=== PATIENT | female | born 1990 | race Caucasian/White ===

== ENCOUNTER 2019-04-02 09:52 | Emergency (ER) | payer OTHER ==
[~2019-04-02] VITALS: Ht 170.2 cm; Wt 76.0 kg
--- NOTE | 2019-04-02 10:07 | NUR ---
EKG IN TRIAGE.
--- NOTE | 2019-04-02 10:33 | NUR ---
PT REPORTS "MY ARMS AND CHEST ARE HEAVY AND MY THROAT IS ON FIRE. MY EARS ALSO HURT". ROUNDED. PT ON SERIAL VS AND HEART MONITOR. NAD.
--- NOTE | 2019-04-02 10:35 | NUR ---
I reported to Elias that pt systolic was over 210.
[2019-04-02] MEDS ORDERED: LABETALOL 5MG/ML, 20ML ONE (10:44)
[2019-04-02 10:47] LABS: BASOPHILS # (AUTO) 0.03 x10^3/uL (0-0.1); BASOPHILS % (AUTO) 0 % (0-1); EOSINOPHILS # (AUTO) 0.09 x10^3/uL (0-0.4); EOSINOPHILS % (AUTO) 1 % (1-7); LYMPHOCYTES % (AUTO) 21 % (22-44); MD NO; MEAN CORPUSCULAR HEMOGLOBIN 31.4 pg (27.0-34.8); MEAN CORPUSCULAR HGB CONC 33.7 g/dL (32.4-35.8); MEAN CORPUSCULAR VOLUME 93.1 fL (80-100); MEAN PLATELET VOLUME 8.4 fL (7.4-10.4); MONOCYTES % (AUTO) 6 % (2-9); NEUTROPHILS # (AUTO) 7.52 x10^3/uL (1.8-6.8); NEUTROPHILS % (AUTO) 72 % (42-75); PLATELET COUNT 326 x10^3/uL (130-400); RED BLOOD COUNT 4.65 x10^6/uL (3.82-5.3); RED CELL DISTRIBUTION WIDTH 12.5 % (9.6-15.2)
[2019-04-02 10:56] LABS: ALANINE AMINOTRANSFERASE 18 U/L (12-78); ANION GAP 10 mmol/L (5-15); CHLORIDE 109 mmol/L (98-107); CREATININE 0.88 mg/dL (0.55-1.02)
--- NOTE | 2019-04-02 10:57 | NUR ---
PT MEDICATED FOR HIGH BP. ROUNDED AGAIN. EKG IN PROGRESS. NAD.
[2019-04-02] MEDS ORDERED: LABETALOL 5MG/ML, 20ML IVPush ONE (11:00)
[2019-04-02 11:01] LABS: ALKALINE PHOSPHATASE 77 U/L (45-117); BILIRUBIN,TOTAL 0.3 mg/dL (0.2-1.0); TOTAL PROTEIN 7.7 g/dL (6.4-8.2); TROPONIN I < 0.015 ng/mL (0.000-0.045)
--- NOTE | 2019-04-02 11:23 | NUR ---
PT REPORTS THAT WHEN SHE HAS CONTRAST "SHE CAN'T BREATH". MD NOTIFIED.
[2019-04-02] MEDS ORDERED: SODIUM CHLORIDE 0.9%, 500ML IVBOLUS ONE (11:30)
[2019-04-02] MEDS ORDERED: methylPREDNISolone SOD SUCC 125 MG/2 ML IVPush ONE (11:30)
[2019-04-02] MEDS ORDERED: DIPHENHYDRAMINE 50 MG/ML, 1ML IVPush ONE (11:30)
[2019-04-02] MEDS ORDERED: DIPHENHYDRAMINE 50 MG/ML, 1ML ONE (11:33)
[2019-04-02] MEDS ORDERED: methylPREDNISolone SOD SUCC 125 MG/2 ML ONE (11:33)
--- NOTE | 2019-04-02 11:40 | NUR ---
AFTER TALKING WITH ROLLY, THE REACTION THAT PT HAS TO CONTRAST IS NOT A CONCERN. PT PREMEDICATED FOR COMFORT. VSS. NAD.
[2019-04-02] MEDS ORDERED: ONDANSETRON 2MG/ML, 2ML IVPush ONE (12:00)
[2019-04-02] MEDS ORDERED: OMNIPAQUE 350 MG/ML, 100ML BOTTLE ONE (12:17)
--- NOTE | 2019-04-02 12:38 | NUR ---
PT BACK FROM CT AND SHE REPORTS THAT "I FEEL FINE. I DIDN'T HAVE BAD SYMPTOMS LIKE I DID THE LAST TIME I HAD CONTRAST. AND I DON'T HAVE NAUSEA SO I THINK I'LL PASS ON THE ZOFRAN". VSS. NAD.
[2019-04-02 13:37] VITALS: BP 123/77
--- NOTE | 2019-04-02 13:37 | NUR ---
PT STATES SHE WANTS TO GO HOME INSTEAD OF STAY FOR OBSERVATION. NOTIFIED.
--- NOTE | 2019-04-02 13:53 | NUR ---
ROLLY DISCUSSED POC WITH PT. PT REPORTS SHE DOES NOT WANT TO STAY IN THE HOSPITAL FOR OBSERVATION AND SHE IS GOING TO FOLLOW UP WITH CARDIO INSTRUCTED BY ROLLY. PT WAS GIVEN THE OPTION TO STAY FOR FURTHER OBSERVATION BUT SHE DECLINES. RISKS EXPLAINED TO PT AND SHE VERBALIZED UNDERSTANDING. VSS. MCKAY.
--- NOTE | 2019-04-02 14:01 | NUR ---
Patient given discharge instructions and they have confirmed that they understand the instructions. Patient ambulatory with steady gait. Pt has been given the option to stay for observation, but declines. Pt agrees that she will follow up with cardio as instructed by Elias. IV removed.
== END 2019-04-02 14:24 | disposition home or self-care (01) ==
LOC: ED 13:18
DX: R06.00 Dyspnea, unspecified (principal); I10 Essential (primary) hypertension; R20.2 Paresthesia of skin; I16.0 Hypertensive urgency; R94.31 Abnormal electrocardiogram [ECG] [EKG]; R42 Dizziness and giddiness
CPT/HCPCS: 36415; 71045; 71275; 80053; 84484; 84703; 85025; 85379; 93005; 96361; 96374; 96375; 99284; J1200; J2930; J7040; Q9967